=== PATIENT | male | born 1995 ===

== ENCOUNTER 2018-11-19 19:39 | Emergency (ER) | payer OTHER ==
[2018-11-19] MEDS ORDERED: KETOROLAC TROMETHAMINE 60 MG/2 ML SDV IM ONE (20:20)
[2018-11-19] MEDS ORDERED: ACETAMINOPHEN 325 MG TABLET PO ONE (21:09)
[2018-11-19] MEDS ORDERED: IBUPROFEN 600 MG TABLET PO ONE (21:09)
--- NOTE | 2018-11-19 21:37 | RADIOLOGY REPORT (SQ) ---
EXAM DESCRIPTION: XR HIP 2 OR MORE VIEWS COMPLETED DATE/TME: 11/19/2018 20:20 CLINICAL HISTORY: 22 years, Male, pain, clicking COMPARISON: None. FINDINGS: No fracture or dislocation. Soft tissues are unremarkable. IMPRESSION: No acute abnormality.
--- NOTE | 2018-11-19 22:47 | ER Document Report ---
ED General - General Chief Complaint: Hip Pain Stated Complaint: LEFT HIP PAIN Time Seen by Provider: 11/19/18 20:20 Notes: Patient is a 22-year-old male without chronic medical problems presents with left hip pain and clicking in the left hip. Patient states that he has had some intermittent pain to the left hip but that it became much more severe after an 8 mile run today and his job through the [employer]. The patient describes the pain as being a throbbing, aching, constant pain worsened with walking and range of motion of the left hip. He has not tried anything for improvement of the pain. States that he had some mild pain to the left hip in the past but never to this degree of intensity. Denies any direct trauma to the hip. Has not seen his general physician regarding today's concerns. TRAVEL OUTSIDE OF THE [place] IN LAST 30 DAYS: No Past Medical History - General Information source: Patient - Social History Smoking Status: Current Some Day Smoker Chew tobacco use (# tins/day): No Frequency of alcohol use: Social Drug Abuse: None Family History: Reviewed & Not Pertinent Patient has suicidal ideation: No Patient has homicidal ideation: No Renal/ Medical History: Denies: Hx Peritoneal Dialysis Review of Systems - Review of Systems Notes: Constitutional: Negative for fever. HENT: Negative for sore throat. Eyes: Negative for visual changes. Cardiovascular: Negative for chest pain. Respiratory: Negative for shortness of breath. Gastrointestinal: Negative for abdominal pain, vomiting or diarrhea. Genitourinary: Negative for dysuria. Musculoskeletal: Positive for left hip pain Skin: Negative for rash. Neurological: Negative for headaches, weakness or numbness. 10 point ROS negative except as marked above and in HPI. Physical Exam - Vital signs Vitals: Temp Pulse Resp BP Pulse Ox 98.2 F 79 18 140/81 H 97 11/19/18 19:43 11/19/18 19:43 11/19/18 19:43 11/19/18 19:43 11/19/18 19:43 Interpretation: Normal Notes: PHYSICAL EXAMINATION: GENERAL: Well-appearing, well-nourished and in no acute distress. HEAD: Atraumatic, normocephalic. EYES: Pupils equal round and reactive to light, extraocular movements intact, sclera anicteric, conjunctiva are normal. ENT: nares patent, oropharynx clear without exudates. Moist mucous membranes. NECK: Normal range of motion, supple without lymphadenopathy LUNGS: Breath sounds clear to auscultation bilaterally and equal. No wheezes rales or rhonchi. HEART: Regular rate and rhythm without murmurs ABDOMEN: Soft, nontender, normoactive bowel sounds. No guarding, no rebound. No masses appreciated. EXTREMITIES: Pain with axial loading of the left hip as well as with palpation of the left inguinal crease. No visible swelling or deformity to the left hip joint or inguinal crease. Pain with range of motion testing of the left hip throughout. No pain with range of motion of the knee or ankle on the left. NEUROLOGICAL: No focal neurological deficits. Moves all extremities spontaneously and on command. PSYCH: Normal mood, normal affect. SKIN: Warm, Dry, normal turgor, no rashes or lesions noted. Course - Re-evaluation Re-evalutation: 11/19/18 22:43 No evidence of a septic joint, gout flare, dislocation, or fracture on exam and imaging. Possible associated ligamentous strain versus arthritic changes. At this time, I do not see an indication for labs or further imaging. Will discharge with conservative measures, return precautions, and follow-up recommendations. - Vital Signs Vital signs: Temp Pulse Resp BP Pulse Ox 97.9 F 72 18 121/56 L 97 11/19/18 22:53 11/19/18 22:53 11/19/18 22:53 11/19/18 22:53 11/19/18 22:53 - Diagnostic Test Radiology reviewed: Image reviewed, Reports reviewed Radiology results interpreted by me: 11/19/18 22:44 Left hip: No acute fracture or dislocation Discharge - Discharge Clinical Impression: Left hip pain Condition: Good Disposition: HOME, SELF-CARE Additional Instructions: Your x-ray does not show any acute fracture today. You likely have a ligamentous strain. You should continue to take anti-inflammatories such as ibuprofen 600 mg every 6 hours. Continue to apply ice to the area is much your able. Please follow-up with your primary care physician if you do not have improving your symptoms in the next 1-2 weeks. Please return immediately if you develop weakness, numbness, spreading redness from the area, or any other symptoms that are concerning to you.
[2018-11-19 23:22] VITALS: BP 121/56
== END 2018-11-19 22:55 | disposition home or self-care (01) ==
LOC: ER 19:39
DX: M25.552 Pain in left hip (principal); F17.200 Nicotine dependence, unspecified, uncomplicated
CPT/HCPCS: 99283